=== PATIENT | male | born 1965 | race American Indian/Alaskan Native ===

== ENCOUNTER 2021-12-15 04:39 | Emergency (ER) | payer MEDICARE ==
[2021-12-15 05:00] VITALS: BP 182/119
[2021-12-15] MEDS ORDERED: cloNIDine 0.1 MG TAB PO ONE (06:26)
--- NOTE | 2021-12-15 06:35 | Emergency Department Report ---
ED Back Pain/Injury HPI - General Chief Complaint: Back Pain/Injury Stated Complaint: LEFT SIDE HIP BURNING IRRITATION Time Seen by Provider: 12/15/21 06:12 Source: patient Limitations: No Limitations - History of Present Illness Initial Comments: pt c/o possible "bite" to the left flank/hip area, states he doesn't think there is a visual irritation, but he can feel it. States "I have had a lot of surgeries and have a colostomy bag and shit, shit, shit, so just wanted to be sure everything was ok bc it is just not getting better" Complaint: back pain -: Gradual, days(s) Similar Symptoms Previously: No Place: home Radiation: none Severity: moderate Severity scale (0 -10): 6 Quality: other (burning) Consistency: constant Worsens With: none Associated Symptoms: denies: denies other symptoms, confusion, weakness, chest pain, fever/chills, constipation - Related Data Previous Rx's Medication Instructions Recorded Last Taken Type Acyclovir [Zovirax Tab] 400 mg PO Q8H #15 tab 12/15/21 Unknown Rx Capsaicin [Capsaicin Heat Patch] 1 each TP DAILY #7 patch 12/15/21 Unknown Rx Ketorolac [Toradol] 10 mg PO Q6H PRN #14 12/15/21 Unknown Rx Allergies Allergy/AdvReac Type Severity Reaction Status Date / Time Sulfa (Sulfonamide Allergy Itching Verified 12/15/21 05:02 Antibiotics) ED Review of Systems ROS: Stated complaint: LEFT SIDE HIP BURNING IRRITATION Other details as noted in HPI Constitutional: denies: chills, fever Eyes: denies: eye pain, eye discharge, vision change ENT: denies: ear pain, throat pain Respiratory: denies: cough, shortness of breath, wheezing Cardiovascular: denies: chest pain, palpitations Endocrine: no symptoms reported Gastrointestinal: denies: abdominal pain, nausea, diarrhea Genitourinary: denies: urgency, dysuria Musculoskeletal: denies: back pain, joint swelling, arthralgia Skin: denies: rash, lesions Neurological: denies: headache, weakness, paresthesias Psychiatric: denies: anxiety, depression Hematological/Lymphatic: denies: easy bleeding, easy bruising ED Past Medical Hx - Past Medical History Previous Medical History?: Yes Hx of Cancer: Yes (colorectal states in remission) Hx HIV: Yes - Surgical History Past Surgical History?: Yes Additional Surgical History: colostomy, "a lot" pt states mostly colorectal x3 - Social History Smoking Status: Never Smoker Substance Use Type: None - Medications Home Medications: Home Medications Medication Instructions Recorded Confirmed Last Taken Type Acyclovir [Zovirax Tab] 400 mg PO Q8H #15 tab 12/15/21 Unknown Rx Capsaicin [Capsaicin Heat Patch] 1 each TP DAILY #7 patch 12/15/21 Unknown Rx Ketorolac [Toradol] 10 mg PO Q6H PRN #14 12/15/21 Unknown Rx ED Physical Exam - General Limitations: No Limitations General appearance: alert, in no apparent distress - Head Head exam: Present: atraumatic, normocephalic - Eye Eye exam: Present: normal appearance - ENT ENT exam: Present: mucous membranes moist - Neck Neck exam: Present: normal inspection - Respiratory Respiratory exam: Present: normal lung sounds bilaterally. Absent: respiratory distress - Cardiovascular Cardiovascular Exam: Present: regular rate, normal rhythm. Absent: systolic murmur, diastolic murmur, rubs, gallop - GI/Abdominal GI/Abdominal exam: Present: soft, normal bowel sounds - Rectal Rectal exam: Present: deferred - Extremities Exam Extremities exam: Present: normal inspection - Back Exam Back exam: Present: normal inspection - Neurological Exam Neurological exam: Present: alert, oriented X3 - Psychiatric Psychiatric exam: Present: normal affect, normal mood - Skin Skin exam: Present: warm, dry, erythema, vesicles. Absent: rash ED Course Vital Signs 12/15/21 12/15/21 04:59 05:12 Temperature 98.7 F 98.9 F Pulse Rate 81 Respiratory 18 Rate Blood Pressure 182/119 O2 Sat by Pulse 99 Oximetry Critical care attestation.: If time is entered above; I have spent that time in minutes in the direct care of this critically ill patient, excluding procedure time. ED Disposition Clinical Impression: Shingles, Back pain Disposition: 01 HOME / SELF CARE / HOMELESS Is pt being admited?: No Does the pt Need Aspirin: No Condition: Stable Prescriptions: Capsaicin [Capsaicin Heat Patch] 1 each TP DAILY #7 patch Ketorolac [Toradol] 10 mg PO Q6H PRN #14 PRN Reason: Pain Acyclovir [Zovirax Tab] 400 mg PO Q8H #15 tab
== END 2021-12-15 06:50 | disposition home or self-care (01) ==
LOC: ED 04:39
DX: B02.9 Zoster without complications (principal); M54.9 Dorsalgia, unspecified; Z85.9 Personal history of malignant neoplasm, unspecified; Z88.2 Allergy status to sulfonamides
CPT/HCPCS: 99282